=== PATIENT | male | born 1955 | race Caucasian/White ===

== ENCOUNTER 2018-03-17 09:27 | Inpatient (IN) | payer MEDICARE, MEDICAID ==
[~2018-03-17] VITALS: Ht 182.9 cm; Wt 105.2 kg
[2018-03-17] VITALS (7 sets, daily range): BP systolic 111–131; BP diastolic 59–93; BMI 33.8
[2018-03-17 15:26] LABS: HEMATOCRIT 41.3 % (42.0-54.0); HEMOGLOBIN 14.1 g/dL (13.5-17.5)
[2018-03-17 22:14] LABS: HEMATOCRIT 39.7 % (42.0-54.0); HEMOGLOBIN 13.6 g/dL (13.5-17.5)
[2018-03-18 03:58] VITALS: BP 109/57
[2018-03-18 06:35] LABS: BASOPHILS 0.4 % (0-2); EOSINOPHILS 2.2 % (0-7); HEMATOCRIT 41.8 % (42.0-54.0); HEMOGLOBIN 14.2 g/dL (13.5-17.5); IMMATURE GRANULOCYTES 0.1 % (0-5); LYMPHOCYTES 20.8 % (15-50); MCH 34.2 pg (26.0-34.0); MCV 100.7 fL (80.0-100.0); MONOCYTES 7.8 % (2-11); NEUTROPHILS 68.7 % (40-80); PLATELET COUNT 68 10x3/uL (130-400); RBC 4.15 10x6/uL (4.20-6.10); RDW 15.1 % (11.5-14.5); WBC 7.7 10x3/uL (4.8-10.8)
[2018-03-18 06:38] LABS: INR 1.26 (0.85-1.17); PROTIME 15.3 SECONDS (11.6-15.0)
[2018-03-18 06:59] LABS: ALBUMIN 3.3 g/dL (3.4-5.0); ANION GAP 11.2 mmol/L (8-16); BILIRUBIN - TOTAL 4.44 mg/dL (0.2-1.3); CALCIUM 8.4 mg/dL (8.5-10.1); CREATININE - SERUM 1.2 mg/dL (0.6-1.3); POTASSIUM - SERUM 4.2 mmol/L (3.5-5.1); PROTEIN - SERUM 6.4 g/dL (6.4-8.2)
[2018-03-18 08:09] LABS: PLATELET ESTIMATE DECREASED
[2018-03-18 08:12] VITALS: BP 114/76
[2018-03-18 12:43] VITALS: BP 110/61
[2018-03-18 13:43] VITALS: Ht 182.9 cm; Wt 105.2 kg
[2018-03-18 15:09] LABS: HEMATOCRIT 38.8 % (42.0-54.0)
[2018-03-18 16:03] VITALS: BP 108/70
[2018-03-18 21:23] LABS: HEMATOCRIT 37.5 % (42.0-54.0); HEMOGLOBIN 12.5 g/dL (13.5-17.5)
[2018-03-18 21:29] VITALS: BP 111/69
[2018-03-18 23:47] VITALS: BP 124/74
[2018-03-19 04:22] VITALS: BP 110/62
[2018-03-19 06:11] LABS: BASOPHILS 0.4 % (0-2); EOSINOPHILS 2.9 % (0-7); HEMATOCRIT 35.6 % (42.0-54.0); IMMATURE GRANULOCYTES 0.4 % (0-5); LYMPHOCYTES 31.1 % (15-50); MCH 34.2 pg (26.0-34.0); MCHC 33.7 g/dL (31.0-37.0); MCV 101.4 fL (80.0-100.0); MONOCYTES 10.1 % (2-11); NEUTROPHILS 55.1 % (40-80); RBC 3.51 10x6/uL (4.20-6.10); RDW 14.9 % (11.5-14.5)
[2018-03-19 06:17] LABS: WBC 4.5 10x3/uL (4.8-10.8)
[2018-03-19 06:19] LABS: PLATELET COUNT 44 10x3/uL (130-400)
[2018-03-19 06:21] LABS: ANION GAP 6.8 mmol/L (8-16); CALCIUM 7.8 mg/dL (8.5-10.1); CARBON DIOXIDE 29.1 mmol/L (21.0-32.0); CREATININE - SERUM 1.3 mg/dL (0.6-1.3); POTASSIUM - SERUM 3.9 mmol/L (3.5-5.1)
[2018-03-19 10:08] VITALS: BP 143/87
[2018-03-19 16:02] VITALS: BP 108/54
[2018-03-19 20:13] VITALS: BP 112/55
[2018-03-20 00:30] VITALS: BP 126/68
[2018-03-20 06:05] VITALS: BP 115/79
[2018-03-20 06:44] LABS: BASOPHILS 0.7 % (0-2); EOSINOPHILS 5.9 % (0-7); HEMATOCRIT 34.1 % (42.0-54.0); HEMOGLOBIN 11.7 g/dL (13.5-17.5); IMMATURE GRANULOCYTES 0.2 % (0-5); LYMPHOCYTES 29.6 % (15-50); MCH 34.2 pg (26.0-34.0); MCHC 34.3 g/dL (31.0-37.0); MCV 99.7 fL (80.0-100.0); MEAN PLATELET VOLUME 9.5 fL (7.4-10.4); MONOCYTES 8.1 % (2-11); NEUTROPHILS 55.5 % (40-80); RBC 3.42 10x6/uL (4.20-6.10); RDW 14.6 % (11.5-14.5); WBC 4.1 10x3/uL (4.8-10.8)
[2018-03-20 07:03] LABS: PLATELET COUNT 49 10x3/uL (130-400)
[2018-03-20 07:17] LABS: INR 1.38 (0.85-1.17); PROTIME 16.5 SECONDS (11.6-15.0)
[2018-03-20 07:23] LABS: ALBUMIN 2.9 g/dL (3.4-5.0); ANION GAP 9.9 mmol/L (8-16); BILIRUBIN - TOTAL 3.92 mg/dL (0.2-1.3); CALCIUM 7.9 mg/dL (8.5-10.1); CARBON DIOXIDE 27.7 mmol/L (21.0-32.0); CREATININE - SERUM 1.1 mg/dL (0.6-1.3); POTASSIUM - SERUM 3.6 mmol/L (3.5-5.1); PROTEIN - SERUM 5.5 g/dL (6.4-8.2)
[2018-03-20 07:59] LABS: BILIRUBIN - DIRECT 0.81 mg/dL (0.00-0.30)
[2018-03-20 08:57] VITALS: BP 139/57
[2018-03-20 13:15] VITALS: BP 122/72
[2018-03-20 16:56] VITALS: BP 121/73
[2018-03-20 20:04] VITALS: BP 115/59
[2018-03-21 01:23] VITALS: BP 121/74
[2018-03-21 04:10] VITALS: BP 134/64
[2018-03-21 05:10] LABS: BASOPHILS 0.2 % (0-2); EOSINOPHILS 7.3 % (0-7); HEMATOCRIT 33.9 % (42.0-54.0); HEMOGLOBIN 11.8 g/dL (13.5-17.5); IMMATURE GRANULOCYTES 0.5 % (0-5); LYMPHOCYTES 22.4 % (15-50); MCH 36.2 pg (26.0-34.0); MCHC 34.8 g/dL (31.0-37.0); MONOCYTES 7.1 % (2-11); NEUTROPHILS 62.5 % (40-80); PLATELET COUNT 70 10x3/uL (130-400); RBC 3.26 10x6/uL (4.20-6.10); RDW 17.7 % (11.5-14.5); WBC 4.1 10x3/uL (4.8-10.8)
[2018-03-21 05:17] LABS: ALBUMIN 2.4 g/dL (3.4-5.0); ALKALINE PHOSPHATASE 81 U/L (46-116); ALT (SGPT) 16 U/L (10-68); CALCIUM 7.8 mg/dL (8.5-10.1); CARBON DIOXIDE 25.7 mmol/L (21.0-32.0); CHLORIDE - SERUM 110 mmol/L (98-107); GLUCOSE 95 mg/dL (74-106); PROTEIN - SERUM 5.6 g/dL (6.4-8.2); SODIUM 138 mmol/L (136-145)
[2018-03-21 05:18] LABS: CALC OSMOLALITY 272 mosm/kg (275-300); CREATININE - SERUM 0.8 mg/dL (0.6-1.3); POTASSIUM - SERUM 4.9 mmol/L (3.5-5.1); UREA NITROGEN 4 mg/dL (7-18); eGFR NON AFRICAN AMERICAN > 90 mL/min (90-120)
[2018-03-21 08:25] LABS: FOLATE (FOLIC ACID) - SERUM 5.9 ng/mL (>3.0)
[2018-03-21 09:31] VITALS: BP 122/71
[2018-03-21 16:44] VITALS: BP 130/76
[2018-03-21 20:01] VITALS: BP 129/72
[2018-03-22 03:48] VITALS: BP 126/49
[2018-03-22 07:35] LABS: BASOPHILS 0.6 % (0-2); EOSINOPHILS 6.6 % (0-7); HEMATOCRIT 33.5 % (42.0-54.0); HEMOGLOBIN 11.6 g/dL (13.5-17.5); IMMATURE GRANULOCYTES 0.6 % (0-5); LYMPHOCYTES 26.6 % (15-50); MCH 34.2 pg (26.0-34.0); MCHC 34.6 g/dL (31.0-37.0); MEAN PLATELET VOLUME 9.6 fL (7.4-10.4); MONOCYTES 7.1 % (2-11); NEUTROPHILS 58.5 % (40-80); RBC 3.39 10x6/uL (4.20-6.10); WBC 3.5 10x3/uL (4.8-10.8)
[2018-03-22 07:48] LABS: MCV 98.8 fL (80.0-100.0)
[2018-03-22 07:49] LABS: PLATELET COUNT 48 10x3/uL (130-400)
[2018-03-22 08:02] LABS: ALBUMIN 2.8 g/dL (3.4-5.0); ALKALINE PHOSPHATASE 92 U/L (46-116); ALT (SGPT) 18 U/L (10-68); BILIRUBIN - TOTAL 2.25 mg/dL (0.2-1.3); CALCIUM 8.3 mg/dL (8.5-10.1); CARBON DIOXIDE 29.1 mmol/L (21.0-32.0); CHLORIDE - SERUM 108 mmol/L (98-107); GLUCOSE 96 mg/dL (74-106); PROTEIN - SERUM 5.6 g/dL (6.4-8.2); SODIUM 143 mmol/L (136-145); eGFR NON AFRICAN AMERICAN 80 mL/min (90-120)
[2018-03-22 08:10] LABS: CALC OSMOLALITY 282 mosm/kg (275-300); POTASSIUM - SERUM 3.7 mmol/L (3.5-5.1); UREA NITROGEN 8 mg/dL (7-18)
[2018-03-22 09:01] VITALS: BP 138/78
[2018-03-22] MEDS ORDERED: LEVAQUIN500 MG PO (10:20)
[2018-03-22] MEDS ORDERED: FLORAJEN3 CAPS460 MG PO (10:21)
[2018-03-22] MEDS ORDERED: FLAGYL500 MG PO (10:21)
[2018-03-22] MEDS ORDERED: PROTONIX40 MG PO (10:21)
[2018-03-22] MEDS ORDERED: CARAFATE1 G PO (10:22)
[2018-03-22] MEDS ORDERED: ULTRAM50 MG PO (10:23)
== END 2018-03-22 13:00 | disposition home or self-care (01) | DRG 378 ==
LOC: D.ER 09:27 → D.ICU 10:20 → D.EDHOLD 10:20 → D.MS 10:20 → D.ICU 11:39 → D.MS 17:35
PROVIDERS: Family Medicine; Internal Medicine Gastroenterology
PROC: 0DB78ZX Excision of Stomach, Pylorus, Via Natural or Artificial Opening Endoscopic, Diagnostic (ICD-10-PCS; principal; 2018-03-17 10:30)
DX: K25.4 Chronic or unspecified gastric ulcer with hemorrhage (principal); K22.10 Ulcer of esophagus without bleeding; K57.92 Diverticulitis of intestine, part unspecified, without perforation or abscess without bleeding; D50.0 Iron deficiency anemia secondary to blood loss (chronic); K44.9 Diaphragmatic hernia without obstruction or gangrene; T39.395A Adverse effect of other nonsteroidal anti-inflammatory drugs [NSAID], initial encounter; T39.015A Adverse effect of aspirin, initial encounter; K26.9 Duodenal ulcer, unspecified as acute or chronic, without hemorrhage or perforation; J44.9 Chronic obstructive pulmonary disease, unspecified; D69.6 Thrombocytopenia, unspecified; Z87.891 Personal history of nicotine dependence